=== PATIENT | female | born 1965 | race Caucasian/White ===

== ENCOUNTER 2016-12-04 14:33 | Emergency (ER) | payer MEDICAID ==
[~2016-12-04] VITALS: Wt 59.5 kg
[2016-12-04 17:02] LABS: BASOPHIL # 0.1 10^3/ul (0.0-0.1); BASOPHILS % 0.7 % (0.0-2.0); EOSINOPHILS # 0.4 10^3/ul (0.0-0.5); EOSINOPHILS % 4.9 % (0.0-7.0); HEMATOCRIT 39.8 % (37.0-47.0); LYMPHOCYTES # 2.4 10^3/ul (0.8-2.9); LYMPHOCYTES % 32.2 % (15.0-51.0); MEAN CORPUSCULAR HEMOGLOBIN 27.7 pg (29.0-33.0); MEAN CORPUSCULAR HGB CONC 32.7 g/dl (32.0-37.0); MEAN CORPUSCULAR VOLUME 84.7 fl (82.0-101.0); MEAN PLATELET VOLUME 8.6 fl (7.4-10.4); MONOCYTE # 0.5 10^3/ul (0.3-0.9); MONOCYTES % 6.1 % (0.0-11.0); NEUTROPHIL # 4.2 10^3/ul (1.6-7.5); NEUTROPHILS % 55.8 % (39.0-77.0); PLATELET COUNT 319 10^3/UL (140-415); WHITE BLOOD COUNT 7.5 10^3/ul (4.8-10.8)
[2016-12-04 17:14] LABS: ADD UMIC YES; UR ASCORBIC ACID NEGATIVE (NEGATIVE); UR BACTERIA FEW /HPF (NONE SEEN); UR BILIRUBIN (Dip) NEGATIVE (NEGATIVE); UR BLOOD (Dip) 2+ mg/dL (NEGATIVE); UR CLARITY CLEAR (CLEAR); UR COLOR YELLOW (YELLOW); UR GLUCOSE (Dip) NEGATIVE (NEGATIVE); UR KETONES (Dip) NEGATIVE (NEGATIVE); UR LEUKOCYTE ESTERASE (Dip) NEGATIVE Leu/ul (NEGATIVE); UR NITRITE (Dip) NEGATIVE (NEGATIVE); UR RBC 3 /HPF (0-5); UR SPECIFIC GRAVITY (Dip) 1.008 (1.003-1.030); UR SQUAMOUS EPITHELIAL CELL FEW /HPF (FEW); UR TOTAL PROTEIN (Dip) NEGATIVE (NEGATIVE); UR UROBILINOGEN (Dip) NEGATIVE (NEGATIVE)
[2016-12-04] MEDS ORDERED: TRAM50TA2 PO (17:31)
[2016-12-04] MEDS ORDERED: ACYC800T57 PO (17:31)
[2016-12-04 17:35] LABS: ALBUMIN 4.8 g/dl (3.3-4.9); ALBUMIN/GLOBULIN RATIO 1.54; BILIRUBIN,INDIRECT 0.2 mg/dl (0-1.1); BILIRUBIN,TOTAL 0.2 mg/dl (0.2-1.3); CALCIUM 9.6 mg/dl (8.4-10.2); CREATININE 0.6 mg/dl (0.44-1.00); POTASSIUM 3.6 mmol/L (3.5-5.1); TOTAL PROTEIN 7.9 g/dl (6.1-8.1)
--- NOTE | 2016-12-04 17:41 | ERD ---
ER Documentation Chief Complaint Date/Time DATE: 12/04/16 TIME: 17:36 Chief Complaint RASH TO ABD AREA HPI 80-year-old female presents with left upper abdominal pain in the skin region for the past 2 days. She describes as a burning prickly pain that is mild and she draws a line from her left upper abdomen to her left side. She states that her family members have had shingles in the past and she feels like it may be shingles again and is very anxious about her symptoms. She states that she has a history of peptic ulcer disease, gastritis and she has not had any abdominal pain with this. She distinctly reports that this pain is over her skin but she does not have a rash. She denies fevers chills, headache, neck stiffness. She denies nausea vomiting or diarrhea. Patient denies chest pain, shortness of breath. Patient states that she also has a history of hepatitis, and she was told that it was not be infectious, but she does not recall and this was many years ago. She is not on any treatment for this. She states that she does not drink or taking excessive Tylenol. ROS All systems reviewed and are negative except as per history of present illness. Medications Home Meds Active Scripts Tramadol HCl (Tramadol HCl) 50 Mg Tablet, 50 MG PO Q4 Y for PAIN, #20 TAB Prov:MARGARET SANCHEZ PA-C 12/04/16 Acyclovir* (Zovirax*) 800 Mg Tablet, 800 MG PO 5 TIMES DAILY for 7 Days, TAB Prov:MARGARET SANCHEZ PA-C 12/04/16 PMhx/Soc Hx Miscellaneous Medical Probl: Yes (hepatitis) Hx Alcohol Use: No Hx Substance Use: No Hx Tobacco Use: No Physical Exam Vitals Vital Signs Date Time Temp Pulse Resp B/P Pulse Ox O2 Delivery O2 Flow Rate FiO2 12/04/16 17:51 69 138/84 12/04/16 14:55 98.0 78 18 175/98 99 Physical Exam Const: [] Head: Atraumatic Eyes: Normal Conjunctiva ENT: Normal External Ears, Nose and Mouth. Neck: Full range of motion..~ No meningismus. Resp: Clear to auscultation bilaterally Cardio: Regular rate and rhythm, no murmurs Abd: Soft, non tender, non distended. Normal bowel sounds Skin: No petechiae or rashes Back: No midline or flank tenderness Ext: No cyanosis, or edema Neur: Awake and alert Psych: Normal Mood and Affect Result Diagram: 12/04/16 1640 12/04/16 1640 Results 24 hrs Laboratory Tests Test 12/04/16 16:40 12/04/16 16:50 White Blood Count 7.510^3/ul Red Blood Count 4.7010^6/ul Hemoglobin 13.0g/dl Hematocrit 39.8% Mean Corpuscular Volume 84.7fl Mean Corpuscular Hemoglobin 27.7pg Mean Corpuscular Hemoglobin Concent 32.7g/dl Red Cell Distribution Width 14.0% Platelet Count 58483^3/UL Mean Platelet Volume 8.6fl Neutrophils % 55.8% Lymphocytes % 32.2% Monocytes % 6.1% Eosinophils % 4.9% Basophils % 0.7% Nucleated Red Blood Cells % 0.0/100WBC Neutrophils # 4.210^3/ul Lymphocytes # 2.410^3/ul Monocytes # 0.510^3/ul Eosinophils # 0.410^3/ul Basophils # 0.110^3/ul Nucleated Red Blood Cells # 0.010^3/ul Sodium Level 139mmol/L Potassium Level 3.6mmol/L Chloride Level 101mmol/L Carbon Dioxide Level 29mmol/L Anion Gap 13 Blood Urea Nitrogen 12mg/dl Creatinine 0.60mg/dl Glucose Level 129mg/dl Calcium Level 9.6mg/dl Total Bilirubin 0.2mg/dl Direct Bilirubin 0.00mg/dl Indirect Bilirubin 0.2mg/dl Aspartate Amino Transf (AST/SGOT) 76IU/L Alanine Aminotransferase (ALT/SGPT) 227IU/L Alkaline Phosphatase 136IU/L Total Protein 7.9g/dl Albumin 4.8g/dl Globulin 3.10g/dl Albumin/Globulin Ratio 1.54 Lipase 111U/L Urine Color YELLOW Urine Clarity CLEAR Urine pH 7.0 Urine Specific [place] 1.008 Urine Ketones NEGATIVEmg/dL Urine Nitrite NEGATIVEmg/dL Urine Bilirubin NEGATIVEmg/dL Urine Urobilinogen NEGATIVEmg/dL Urine Leukocyte Esterase NEGATIVELeu/ul Urine Microscopic RBC 3/HPF Urine Microscopic WBC 0/HPF Urine Squamous Epithelial Cells FEW/HPF Urine Bacteria FEW/HPF Urine Hemoglobin 2+mg/dL Urine Glucose NEGATIVEmg/dL Urine Total Protein NEGATIVEmg/dl Procedures/MDM 50-year-old female presents with left upper skin pain, she denies having seen a rash but she feels like she may be developing shingles. I have asked her to keep an eye on her symptoms, and to look out for signs of shingles including a rash. If she has fever, headache or neck stiffness she is to return to the emergency room. At this time I have encouraged the patient to get laboratory work, given the location of the pain, being in the abdomen. Patient's AST and ALT are mildly elevated, in the 70s and 220s respectively, she states that she has a history of hepatitis but this was many years ago and she does not know the type. At this time she does not have any right upper quadrant pain, fever, jaundice, nausea vomiting, or signs concerning for acute cholecystitis, choledocholithiasis. She does have "skin pain" without any distinct abdominal pain. Patient states that she has a primary care doctor, I have asked her to get a referral to see a team leader for further outpatient workup. She may have early shingles without the rash at this time, I have asked her to keep an eye on her symptoms. She will be given a prescription to fill acyclovir for her symptoms if she develops a rash. Tramadol may be taken as needed for pain. Departure Diagnosis: Primary Impression: Abdominal pain Condition: Good Patient Instructions: Shingles (Herpes Zoster) MARGARET SANCHEZ PA-C Dec 04, 2016 17:41
[2016-12-04 17:51] VITALS: BP 138/84; PULSE 69
== END 2016-12-04 18:13 | disposition home or self-care (01) ==
LOC: FTE 14:33
DX: R10.12 Left upper quadrant pain (principal)
CPT/HCPCS: 36415; 80053; 81001; 83690; 85025; Z7502; 99284

== ENCOUNTER 2016-12-25 16:09 | Emergency (ER) | payer OTHER ==
[~2016-12-25] VITALS: Ht 165.1 cm; Wt 59.0 kg
[~2016-12-25 16:09] MED LIST: ACYC800T57 PO; TRAM50TA2 PO
[2016-12-25 16:14] VITALS: Ht 165.1 cm; Wt 59.0 kg
--- NOTE | 2016-12-25 16:55 | ERD ---
ER Documentation Chief Complaint Date/Time DATE: 12/25/16 TIME: 16:53 Chief Complaint Complains of burnibg on urination HPI Patient is a 51-year-old female who presents to the ED with dysuria, suprapubic tenderness and generalized abdominal pain 2 days. History of UTIs. Patient also has a history of IBS, gastritis. Patient would like to have her liver enzymes checked as she had has had high liver enzymes in the past. Patient does have an appointment with her primary care provider on Wednesday. Denies fever , chills, vomiting, diarrhea, back pain. Denies hematuria. Has been taking [id number] Pyridium which has helped minimally with her symptoms. No other complaints. Denies chest pain or cough or shortness of breath, headache or dizziness or weakness. ROS All systems reviewed and are negative except as per history of present illness. Medications Home Meds Active Scripts Phenazopyridine Hcl* (Pyridium*) 100 Mg Tab, 100 MG PO TID Y for URINARY PAIN, # 8 TAB Prov:KEVIN CARRASQUILLO PA-C 12/25/16 Ciprofloxacin Hcl* (Ciprofloxacin Hcl*) 500 Mg Tablet, 500 MG PO BID for 7 Days , TAB Prov:KEVIN CARRASQUILLO PA-C 12/25/16 Tramadol HCl (Tramadol HCl) 50 Mg Tablet, 50 MG PO Q4 Y for PAIN, #20 TAB Prov:MARGARET SANCHEZ PA-C 12/04/16 Acyclovir* (Zovirax*) 800 Mg Tablet, 800 MG PO 5 TIMES DAILY for 7 Days, TAB Prov:MARGARET SANCHEZ PA-C 12/04/16 Allergies Allergies: Coded Allergies: No Known Allergy (Unverified , 12/25/16) PMhx/Soc History of Surgery: No Anesthesia Reaction: No Hx Miscellaneous Medical Probl: Yes (hepatitis) Hx Alcohol Use: No Hx Substance Use: Yes (Marijuana 3 times a week) Hx Tobacco Use: Yes (Cigarette socially) FmHx Family History: No coronary disease, No diabetes, No other Physical Exam Vitals Physical Exam GENERAL: Well-developed, well-nourished female. Appears in no acute distress. HEAD: Normocephalic, atraumatic. EYES: Pupils are equally reactive bilaterally. EOMs grossly intact. No conjunctival erythema. ENT: Moist mucous membranes. No uvula deviation. No kissing tonsils. No exudates. NECK: Supple. No lymphadenopathy or thyromegaly. No meningismus. negative kernig. negative brudinski. LUNG: Clear to auscultation bilaterally. No rhonchi, wheezing, rales or coarse breath sounds. HEART: Regular rate and rhythm. No murmurs, rubs or gallops. ABDOMEN: No scars, ecchymosis or rashes noted. Soft, and nondistended. Positive bowel sounds in all four quadrants. No rebound tenderness, no guarding. (-) McBurneys point tenderness. No CVA tenderness. generalized tenderness with no focal tenderness BACK: No midline tenderness. Extremities: Equal pulses bilaterally. No peripheral clubbing, cyanosis or edema. No unilateral leg swelling. NEUROLOGIC: Alert and oriented. Moving all four extremities. 5/5 strength in all extremities. Normal speech. Steady gait. SKIN: Normal color. Warm and dry. No rashes or lesions. Capillary refill < 2 seconds Results 24 hrs Laboratory Tests Test 12/25/16 16:55 12/25/16 17:05 White Blood Count 8.310^3/ul Red Blood Count 4.8210^6/ul Hemoglobin 12.7g/dl Hematocrit 41.3% Mean Corpuscular Volume 85.7fl Mean Corpuscular Hemoglobin 26.3pg Mean Corpuscular Hemoglobin Concent 30.8g/dl Red Cell Distribution Width 14.0% Platelet Count 07563^3/UL Mean Platelet Volume 8.4fl Neutrophils % 67.6% Lymphocytes % 23.6% Monocytes % 6.4% Eosinophils % 1.7% Basophils % 0.5% Nucleated Red Blood Cells % 0.0/100WBC Neutrophils # 5.610^3/ul Lymphocytes # 2.010^3/ul Monocytes # 0.510^3/ul Eosinophils # 0.110^3/ul Basophils # 0.010^3/ul Nucleated Red Blood Cells # 0.010^3/ul Sodium Level 140mmol/L Potassium Level 3.8mmol/L Chloride Level 99mmol/L Carbon Dioxide Level 29mmol/L Anion Gap 16 Blood Urea Nitrogen 18mg/dl Creatinine 0.71mg/dl Glucose Level 101mg/dl Calcium Level 9.9mg/dl Total Bilirubin 0.4mg/dl Direct Bilirubin 0.00mg/dl Indirect Bilirubin 0.4mg/dl Aspartate Amino Transf (AST/SGOT) 50IU/L Alanine Aminotransferase (ALT/SGPT) 165IU/L Alkaline Phosphatase 134IU/L Total Protein 7.7g/dl Albumin 4.7g/dl Globulin 3.00g/dl Albumin/Globulin Ratio 1.56 Lipase 118U/L Bedside Urine pH (LAB) 5.0 Bedside Urine Protein (LAB) Negative Bedside Urine Glucose (UA) Negative Bedside Urine Ketones (LAB) Negative Bedside Urine Blood 2+ Bedside Urine Nitrite (LAB) Positive Bedside Urine Leukocyte Esterase (L Negative Current Medications Medications (Trade) Dose Ordered Sig/Reuben Route PRN Reason Start Time Stop Time Status Last Admin Dose Admin Acetaminophen (Tylenol Tab) 650 mg ONCE ONCE PO 12/25/16 17:00 12/25/16 17:01 DC Phenazopyridine HCl (Pyridium) 200 mg ONCE ONCE PO 12/25/16 18:00 12/25/16 18:01 DC 12/25/16 18:09 Procedures/MDM ER COURSE: I kept the patient and/or family informed of laboratory and diagnostic imaging results throughout the emergency room course. IMAGING STUDIES Radiology Main Line: [phone] DIAGNOSTIC IMAGING REPORT Patient: MOR SEARS : 1965 Age: 51 Sex: F MR #: [id number] DOS: 12/25/16 1738 Ordering MD: KEVIN CARRASQUILLO PA-C Location: [facility] Room/Bed: PROCEDURE: US Abdomen Limited. CLINICAL INDICATION: Right upper quadrant pain TECHNIQUE: Multiple real-time longitudinal and transverse images were acquired of the patient's right abdomen and retroperitoneum utilizing a curved array transducer. COMPARISON: None FINDINGS: Pancreas: The pancreas is suboptimally visualized in the tail. There is no significant abnormality in the visualized portion. The main pancreatic duct is not dilated. Aorta: The visualized portions of the abdominal aorta are unremarkable, with measurements within normal limits. IVC: The inferior vena cava is visualized only in the hepatic segment and demonstrates no abnormality. Liver: There is diffuse increased echogenicity of the liver with a coarse echotexture. The right hepatic lobe measures 15.6 cm craniocaudal, which is within normal limits. There is no definite focal lesion visualized in the liver. Bile ducts: The intrahepatic bile ducts are not dilated. Common bile duct measures 3.7 mm in diameter, within normal limits. Gallbladder: The gallbladder is unremarkable without cholelithiasis, wall thickening, pericholecystic fluid, or sonographic Gerardo's sign. Kidneys: The right kidney measures 9.9 cm in length. The parenchymal echogenicity and thickness appear within normal range. No focal lesions are visualized. No hydronephrosis. There is no ascites visualized in the right abdomen. RPTAT: ZZ IMPRESSION: Diffuse fatty infiltration of the liver. .Raysa Arce MD, MD Date Time Electronically viewed and signed by .Raysa Arce MD, on 12/25/2016 18: 08 .T/ CC: KEVIN CARRASQUILLO PA-C MEDICAL DECISION MAKING: This is a 51-year-old female who presents with dysuria, generalized abdominal pain 2 days. Vital signs were reviewed. Patient is afebrile. Patient is not hypoxic. Is not toxic or ill-appearing. She has urinalysis shows 2+ leukocytes with positive nitrites. Patient has a UTI. She did have elevated transaminas, therefore a right upper quadrant ultrasound of the gallbladder was done. Ultrasound showed Diffuse fatty infiltration of the liver. Low suspicion for choledocholithiasis, cholecystitis, cholangitis, cholelithiasis, sepsis, septic stone, obstructed stone, pyelonephritis. DISCHARGE: At this time, patient is stable for discharge and outpatient management with no new complaints during the ER course. Patient was sent home with ciprofloxacin, Pyridium and to follow-up with her doctor's appointment on wednesday. Patient will be discharged home with instructions to recheck for new or worsening symptoms such as fever, nausea, weakness, LOC and to follow up with primary care in the next 1-2 days. Patient was advised to return to the ER for any new or worsening symptoms. Plan was discussed and patient and/or family understands and agrees. Home instructions were given. Departure Diagnosis: Primary Impression: UTI (urinary tract infection) Urinary tract infection type: acute cystitis Hematuria presence: without hematuria Qualified Code: N30.00 - Acute cystitis without hematuria Condition: Stable KEVIN CARRASQUILLO PA-C Dec 25, 2016 16:55
[2016-12-25 16:57] LABS: URINE BLOOD (Dip) POC 2+ (NEGATIVE)
[2016-12-25] MEDS ORDERED: ACETAMINOPHEN 325 MG TAB PO ONE (17:00)
[2016-12-25 17:08] LABS: BASOPHILS % 0.5 % (0.0-2.0); EOSINOPHILS # 0.1 10^3/ul (0.0-0.5); EOSINOPHILS % 1.7 % (0.0-7.0); HEMATOCRIT 41.3 % (37.0-47.0); HEMOGLOBIN 12.7 g/dl (12.0-16.0); LYMPHOCYTES % 23.6 % (15.0-51.0); MEAN CORPUSCULAR HEMOGLOBIN 26.3 pg (29.0-33.0); MEAN CORPUSCULAR HGB CONC 30.8 g/dl (32.0-37.0); MEAN CORPUSCULAR VOLUME 85.7 fl (82.0-101.0); MEAN PLATELET VOLUME 8.4 fl (7.4-10.4); MONOCYTE # 0.5 10^3/ul (0.3-0.9); MONOCYTES % 6.4 % (0.0-11.0); NEUTROPHIL # 5.6 10^3/ul (1.6-7.5); NEUTROPHILS % 67.6 % (39.0-77.0); PLATELET COUNT 341 10^3/UL (140-415); RED BLOOD COUNT 4.82 10^6/ul (4.20-5.40); WHITE BLOOD COUNT 8.3 10^3/ul (4.8-10.8)
[2016-12-25] MEDS ORDERED: CIPR500T4 PO (17:19)
[2016-12-25 17:31] LABS: ALBUMIN 4.7 g/dl (3.3-4.9); ALBUMIN/GLOBULIN RATIO 1.56; BILIRUBIN,INDIRECT 0.4 mg/dl (0-1.1); BILIRUBIN,TOTAL 0.4 mg/dl (0.2-1.3); CALCIUM 9.9 mg/dl (8.4-10.2); CREATININE 0.71 mg/dl (0.44-1.00); POTASSIUM 3.8 mmol/L (3.5-5.1); TOTAL PROTEIN 7.7 g/dl (6.1-8.1)
[2016-12-25] MEDS ORDERED: PHENAZOPYRIDINE 100 MG TAB PO ONE (18:00)
--- NOTE | 2016-12-25 18:09 | RADRPT ---
PROCEDURE: US Abdomen Limited. CLINICAL INDICATION: Right upper quadrant pain TECHNIQUE: Multiple real-time longitudinal and transverse images were [facility] and [facility]peritoneum utilizing a curved array transducer. COMPARISON: None FINDINGS: Pancreas: The pancreas is suboptimally visualized in the tail. There is no significant abnormality in the visualized portion. The main pancreatic duct is not dilated. Aorta: The visualized portions of the abdominal aorta are unremarkable, with measurements within no rmal limits. IVC: The inferior vena cava is visualized only in the hepatic segment and demonstrates no abnormali ty. Liver: There is diffuse increased echogenicity of the liver with a coarse echotexture. The right he patic lobe measures 15.6 cm craniocaudal, which is within normal limits. There is no definite focal lesion visualized in the liver. Bile ducts: The intrahepatic bile ducts are not dilated. Common bile duct measures 3.[address], within normal limits. Gallbladder: The gallbladder is unremarkable without cholelithiasis, wall thickening, pericholecyst ic fluid, or sonographic Gerardo's sign. Kidneys: The right kidney measures 9.9 cm in length. The parenchymal echogenicity and thickness ap pear within normal range. No focal lesions are visualized. No hydronephrosis. There is no ascites visualized in the right abdomen. RPTAT: ZZ IMPRESSION: Diffuse fatty infiltration of the liver. .Raysa Arce MD, MD Date Time Electronically viewed and signed by .Raysa Arce MD, MD on 12/25/2016 18:08 .T/
[2016-12-25] MEDS ORDERED: PHEN-537 PO (18:10)
== END 2016-12-25 18:16 | disposition home or self-care (01) ==
LOC: FTE 16:09
DX: N30.00 Acute cystitis without hematuria (principal); F17.210 Nicotine dependence, cigarettes, uncomplicated
CPT/HCPCS: 76705; 80053; 81003; 83690; 85025; 87086; Z7610